=== PATIENT | female | born 1940 | race Caucasian/White ===

== ENCOUNTER 2018-02-13 12:30 | Outpatient (CLI) | payer OTHER ==
[2015-11-20 19:32] VITALS: BMI 19.3
--- NOTE | 2018-02-13 13:00 | DI ---
EXAM: PA and lateral views of the chest HISTORY: Cough. COMPARISON: None FINDINGS: The cardiomediastinal silhouette is normal. There is no pneumothorax or pleural effusion. The lungs are mildly hyperinflated with mild apical pleural thickening. There is no consolidation, nodule or mass. The osseous structures are unremarkable. IMPRESSION: Hyperinflated lungs with minimal apical pleural thickening suggestive of chronic obstruc tive pulmonary disease.
== END 2018-02-13 12:31 | disposition home or self-care (01) ==
LOC: RAD 12:30
PROVIDERS: ATTEND Family Medicine
DX: R05 Cough (principal)